=== PATIENT | female | born 1995 | race Caucasian/White ===

== ENCOUNTER 2016-09-15 21:22 | Emergency (ER) | payer OTHER | END 2016-09-16 00:09 | disposition home or self-care (01) | LOC: ER 21:22 | DX: R10.11 Right upper quadrant pain (principal); R10.13 Epigastric pain; R11.0 Nausea; R07.9 Chest pain, unspecified; K21.9 Gastro-esophageal reflux disease without esophagitis; I10 Essential (primary) hypertension | CPT/HCPCS: 36415; 96374; J1885 ==